=== PATIENT | female | born 1995 | race Caucasian/White ===

== ENCOUNTER → 2017-07-20 | Outpatient (CLI) | payer OTHER ==
[2017-07-20 08:57] LABS: COLLECTION METHOD CLEAN CATCH
[2017-07-20 09:08] LABS: HEMATOCRIT 40.9 % (37.0-47.0); HEMOGLOBIN 13.9 g/dl (12.5-16.0); MEAN CELL VOLUME 89 fl (80.0-100.0); MEAN CORPUSCULAR HEMOGLOBIN 30 pg (27.0-31.0); MEAN CORPUSCULAR HGB CONC 34 g/dl (33.0-37.0); MEAN PLATELET VOLUME 11.8 fl (7.4-10.4); PLATELET COUNT 184 K/mm3 (130-400); REDCELL DISTRIBUTION WIDTH-CV 11.9 % (11.5-14.5)
[2017-07-20 09:13] LABS: MUCOUS Present /lpf; PH 6 (5-8); SQUAMOUS EPITHELIAL 0-2 /hpf; URINE APPEARANCE Clear; URINE BACTERIA Rare /hpf; URINE BILIRUBIN Negative (NEGATIVE); URINE BLOOD 2+ (NEGATIVE); URINE COLOR Yellow; URINE GLUCOSE Negative (NEGATIVE); URINE KETONE Negative (NEGATIVE); URINE LEUKOCYTE ESTERASE Negative (NEGATIVE); URINE NITRATE Negative (NEGATIVE); URINE PROTEIN(semi-quant) Negative (NEGATIVE); URINE RBC 0-2 /hpf; URINE UROBILINOGEN Negative (NEGATIVE); URINE WBC 0-2 /hpf
[2017-07-20 09:20] LABS: ALBUMIN 4.5 gm/dL (3.5-5.0); BILIRUBIN,TOTAL 0.5 mg/dL (0.0-1.0); CALCIUM 9.5 mg/dL (8.4-10.2); CHOLESTEROL RISK RATIO 4.4; CREATININE, serum 1.19 mg/dL (0.52-1.25); POTASSIUM 4.3 mmol/L (3.4-5.0); TOTAL PROTEIN 7.5 gm/dL (6.4-8.2)
== END ==
LOC: COL.LAB 08:09
DX: I10 Essential (primary) hypertension (principal)

== ENCOUNTER → 2017-07-28 | Outpatient (CLI) | payer SELFPAY | LOC: COL.RAD 14:29 | DX: R93.421 Abnormal radiologic findings on diagnostic imaging of right kidney (principal); R93.422 Abnormal radiologic findings on diagnostic imaging of left kidney; Q64.8 Other specified congenital malformations of urinary system; R82.3 Hemoglobinuria; N39.0 Urinary tract infection, site not specified; Z96.0 Presence of urogenital implants ==

== ENCOUNTER → 2017-08-11 | Outpatient (CLI) | payer OTHER | LOC: COL.RAD 08-08 11:00 | DX: N28.89 Other specified disorders of kidney and ureter (principal); Q63.0 Accessory kidney; K76.89 Other specified diseases of liver; G31.9 Degenerative disease of nervous system, unspecified | CPT/HCPCS: Q9967 ==

== ENCOUNTER → 2017-08-18 | Outpatient (CLI) | payer SELFPAY ==
[2017-08-18 15:35] LABS: ANION GAP 14 mmol/L (7-16); BLOOD UREA NITROGEN 17 mg/dL (7-17); CALCIUM 9.2 mg/dL (8.4-10.2); CARBON DIOXIDE 23 mmol/L (22-30); CHLORIDE 103 mmol/L (98-107); CREATININE, serum 1.33 mg/dL (0.52-1.25); GLUCOSE 92 mg/dL (74-106); POTASSIUM 4.1 mmol/L (3.4-5.0); SODIUM 140 mmol/L (137-145)
[2017-08-19 15:05] LABS: URINE CREATININE CLEARANCE 73.6 mL/min (88-128); URINE TOTAL VOLUME 1425 mL
== END ==
LOC: COL.LAB 15:03
DX: N39.0 Urinary tract infection, site not specified (principal); G31.9 Degenerative disease of nervous system, unspecified; R93.41 Abnormal radiologic findings on diagnostic imaging of renal pelvis, ureter, or bladder

== ENCOUNTER → 2017-10-03 | Outpatient (CLI) | payer OTHER ==
[2017-10-03 14:13] LABS: CREATININE, serum 1.18 mg/dL (0.52-1.25)
== END ==
LOC: ZCOL.LAB 13:53
PROVIDERS: Internal Medicine
DX: Z01.89 Encounter for other specified special examinations (principal)

== ENCOUNTER → 2017-12-12 | Outpatient (CLI) | payer OTHER ==
[2017-12-12 11:22] LABS: CREATININE, serum 1.18 mg/dL (0.52-1.25)
== END ==
LOC: ZLAB.AMS 09:20
PROVIDERS: Internal Medicine
DX: I10 Essential (primary) hypertension (principal)

== ENCOUNTER → 2018-02-27 | Outpatient (CLI) | payer OTHER ==
[2018-02-27 13:42] LABS: ALBUMIN 4.4 gm/dL (3.5-5.0); CALCIUM 9.9 mg/dL (8.4-10.2); CREATININE, serum 1.18 mg/dL (0.52-1.25); PHOSPHOROUS 3.3 mg/dL (2.5-4.5); POTASSIUM 4.2 mmol/L (3.4-5.0)
[2018-02-27 14:12] LABS: TSH w REFLEX 0.387 uIU/mL (0.465-4.680)
== END ==
LOC: ZCOL.LAB 13:06
PROVIDERS: Internal Medicine
DX: N18.3 Chronic kidney disease, stage 3 (moderate) (principal)

== ENCOUNTER → 2018-03-06 | Outpatient (CLI) | payer OTHER ==
[2018-03-06 13:51] LABS: BASO # 0.1 (0.0-0.2); EOS # 0.2 (0.0-0.7); EOS % 2.4 % (0-4.0); GRAN # 4.8 (1.4-6.5); GRAN % 65.7 % (42.2-75.2); HEMATOCRIT 39.1 % (37.0-47.0); HEMOGLOBIN 13.4 g/dl (12.5-16.0); LYMPH # 1.8 (1.2-3.4); LYMPH % 25.3 % (20.0-51.0); MEAN CELL VOLUME 88 fl (80.0-100.0); MEAN CORPUSCULAR HEMOGLOBIN 30 pg (27.0-31.0); MEAN CORPUSCULAR HGB CONC 34 g/dl (33.0-37.0); MONO # 0.4 (0.1-0.6); MONO % 5.5 % (1.7-9.3); PLATELET COUNT 233 K/mm3 (130-400); RED BLOOD COUNT 4.47 M/mm3 (4.10-5.30); REDCELL DISTRIBUTION WIDTH-CV 11.8 % (11.5-14.5)
[2018-03-06 14:00] LABS: ALBUMIN 4.4 gm/dL (3.5-5.0); CALCIUM 9.8 mg/dL (8.4-10.2); CREATININE, serum 1.03 mg/dL (0.52-1.25); PHOSPHOROUS 3.5 mg/dL (2.5-4.5); POTASSIUM 4.9 mmol/L (3.4-5.0)
== END ==
LOC: ZCOL.LAB 13:17
PROVIDERS: Nurse Practitioner Family
DX: I10 Essential (primary) hypertension (principal)

== ENCOUNTER → 2018-08-20 | Outpatient (CLI) | payer OTHER ==
[2018-08-20 11:38] LABS: COLLECTION METHOD CLEAN CATCH
[2018-08-20 11:49] LABS: MUCOUS Present /lpf; PH 6 (5-8); SQUAMOUS EPITHELIAL 0-2 /hpf; URINE APPEARANCE Clear; URINE BACTERIA None Seen /hpf; URINE BILIRUBIN Negative (NEGATIVE); URINE BLOOD 1+ (NEGATIVE); URINE COLOR Yellow; URINE GLUCOSE Negative (NEGATIVE); URINE KETONE Negative (NEGATIVE); URINE LEUKOCYTE ESTERASE Negative (NEGATIVE); URINE NITRATE Negative (NEGATIVE); URINE PROTEIN(semi-quant) Negative (NEGATIVE); URINE RBC 0-2 /hpf; URINE UROBILINOGEN Negative (NEGATIVE)
[2018-08-20 11:49] LABS: HEMATOCRIT 42.2 % (37.0-47.0); HEMOGLOBIN 14.6 g/dl (12.5-16.0); MEAN CELL VOLUME 89 fl (80.0-100.0); MEAN CORPUSCULAR HEMOGLOBIN 31 pg (27.0-31.0); MEAN CORPUSCULAR HGB CONC 35 g/dl (33.0-37.0); MEAN PLATELET VOLUME 11.5 fl (7.4-10.4); PLATELET COUNT 195 K/mm3 (130-400); RED BLOOD COUNT 4.74 M/mm3 (4.10-5.30); REDCELL DISTRIBUTION WIDTH-CV 11.5 % (11.5-14.5)
[2018-08-20 11:55] LABS: CALCIUM 9.7 mg/dL (8.4-10.2); CREATININE, serum 1.22 (0.52-1.25); POTASSIUM 4.4 mmol/L (3.4-5.0)
[2018-08-20 12:04] LABS: URINE PROTEIN:CREAT RATIO 0.12 (0.00-0.14)
== END ==
LOC: COL.LAB 11:07
PROVIDERS: Family Medicine
DX: Q62.5 Duplication of ureter (principal); N18.9 Chronic kidney disease, unspecified

== ENCOUNTER 2018-08-31 06:27 | Day surgery (SDC) | payer OTHER ==
[~2018-08-31] VITALS: Ht 165.1 cm; Wt 64.5 kg
[2018-08-31 07:29] VITALS: BP 120/73; PULSE 90; TEMP 99.1
[2018-08-31] MEDS ORDERED: TRI-SPRINTEC 281 TAB PO (07:41)
[2018-08-31] MEDS ORDERED: COZAAR 50MG50 MG/TAB PO (07:42)
[2018-08-31 09:40] VITALS: BP 112/63; PULSE 65
--- NOTE | 2018-08-31 09:40 | NUR ---
Patient returns to room 7 per cart from PACU and is awake and alert. Temp 98.6 and room air sats 98%. IV fluids infusing. Siderails up x2 and call light in reach. Davis catheter in place to dependent drainage with pink tinged urine. Allowed to rest. Family in room. Radiology notified that the patient is here.
[2018-08-31 09:55] VITALS: BP 116/70; PULSE 70
--- NOTE | 2018-08-31 09:55 | NUR ---
Urine remains pink. Family in room. States that she is having burning in the urethral area. Will continue to monitor.
[2018-08-31 10:12] VITALS: BP 112/63; PULSE 63; TEMP 98.6
--- NOTE | 2018-08-31 10:20 | NUR ---
Patient taken to radiology per cart.
--- NOTE | 2018-08-31 11:20 | NUR ---
Paitent returns from radiology per wheelchair and IV to INT. Denies pain or nausea. Patient is dressing self and gait steady.
--- NOTE | 2018-08-31 11:29 | NUR ---
Given dismissal instructions and voices undestanding of these. Provided office number for questions and concerns. Provided with follow up appointment card reminder. Patient taken to the front door per wheelchair and assisted into private vehicle driven by spouse and dismissed to home with instructions in hand.
== END 2018-08-31 11:29 | disposition home or self-care (01) ==
LOC: SDCO 06:27
DX: Q62.5 Duplication of ureter (principal); R10.9 Unspecified abdominal pain; I12.9 Hypertensive chronic kidney disease with stage 1 through stage 4 chronic kidney disease, or unspecified chronic kidney disease; N18.2 Chronic kidney disease, stage 2 (mild); Z79.899 Other long term (current) drug therapy; F17.210 Nicotine dependence, cigarettes, uncomplicated; Z87.440 Personal history of urinary (tract) infections; F41.0 Panic disorder [episodic paroxysmal anxiety]; F41.9 Anxiety disorder, unspecified; F32.9 Major depressive disorder, single episode, unspecified
CPT/HCPCS: J0690; J1100; J1885; J2405; J2704; J3010; J7120; Q9967

== ENCOUNTER 2018-10-05 05:24 | Day surgery (SDC) | payer OTHER ==
[~2018-10-05] VITALS: Ht 165.1 cm; Wt 63.0 kg
[~2018-10-05 05:24] MED LIST: COZAAR 50MG50 MG/TAB PO; TRI-SPRINTEC 281 TAB PO
[2018-10-05 06:12] VITALS: BP 134/80; PULSE 66; TEMP 98.8
[2018-10-05 08:45] VITALS: BP 121/65; PULSE 67; TEMP 98.6
--- NOTE | 2018-10-05 08:45 | NUR ---
Patient arrives back to [facility] drowsy. Patient denies nausea, reports pain 2/10 in urethra area. Patient monitor applied, vitals stable. Patient family brought to bedside. Patient given water and muffin. Patient tolerating ice chips well.
[2018-10-05 09:00] VITALS: BP 112/66; PULSE 66
--- NOTE | 2018-10-05 09:00 | NUR ---
Patient tolerating muffin without any nausea. Patient denies wanting any pain medication. Vitals stable. Family at bedside.
[2018-10-05 09:15] VITALS: BP 118/76; PULSE 63
--- NOTE | 2018-10-05 09:20 | NUR ---
Patient resting comfortably, complains of pain starting to increase. PRN Bryan given. Vitals stable.
[2018-10-05] MEDS ORDERED: NORCO 325 MG-51 TAB PO (09:27)
[2018-10-05 09:30] VITALS: BP 112/65; PULSE 54
--- NOTE | 2018-10-05 09:40 | NUR ---
Patient up to restroom at this time with stand by assist. Patient ambulates without any difficulties. Patient is able to urinate without any complications.
--- NOTE | 2018-10-05 10:15 | NUR ---
Dismissal instructions gone over with patient and patient's spouse. Both verbalize understanding and all questions answered.
== END 2018-10-05 10:20 | disposition home or self-care (01) ==
LOC: SDCO 05:24
DX: N13.722 Vesicoureteral-reflux with reflux nephropathy without hydroureter, bilateral (principal); Q62.5 Duplication of ureter; Z87.440 Personal history of urinary (tract) infections; F41.9 Anxiety disorder, unspecified; F32.9 Major depressive disorder, single episode, unspecified; I12.9 Hypertensive chronic kidney disease with stage 1 through stage 4 chronic kidney disease, or unspecified chronic kidney disease; N18.2 Chronic kidney disease, stage 2 (mild); Z88.2 Allergy status to sulfonamides; F17.210 Nicotine dependence, cigarettes, uncomplicated; Z91.048 Other nonmedicinal substance allergy status
CPT/HCPCS: C1769; J0690; J1100; J1885; J2270; J2405; J2704; J3010; J7120; L8604; Q9967

== ENCOUNTER → 2018-10-30 | Outpatient (CLI) | payer OTHER ==
[~2018-10-30] MED LIST changes: +NORCO 325 MG-51 TAB PO
[2018-10-30 09:24] LABS: CALCIUM 9.7 mg/dL (8.4-10.2); CREATININE, serum 1.31 (0.52-1.25); MAGNESIUM 1.7 mg/dL (1.6-2.3); POTASSIUM 4.3 mmol/L (3.4-5.0)
== END ==
LOC: COL.LAB 08:50
PROVIDERS: Internal Medicine
DX: I12.9 Hypertensive chronic kidney disease with stage 1 through stage 4 chronic kidney disease, or unspecified chronic kidney disease (principal); N18.9 Chronic kidney disease, unspecified; Q62.5 Duplication of ureter

== ENCOUNTER → 2019-02-20 | Outpatient (CLI) | payer OTHER ==
[2019-02-20 11:52] LABS: CALCIUM 9.6 mg/dL (8.4-10.2); CREATININE, serum 1.22 (0.52-1.25)
[2019-02-20 23:12] LABS: URINE MICROALBUMIN 3.2 mg/dL (0.0-1.7)
== END ==
LOC: COL.LAB 11:07
PROVIDERS: Internal Medicine
DX: I12.9 Hypertensive chronic kidney disease with stage 1 through stage 4 chronic kidney disease, or unspecified chronic kidney disease (principal); N18.9 Chronic kidney disease, unspecified; Q62.5 Duplication of ureter

== ENCOUNTER → 2019-03-13 | Outpatient (CLI) | payer OTHER | LOC: COL.LAB 14:24 | PROVIDERS: Family Medicine | DX: N92.6 Irregular menstruation, unspecified (principal) ==

== ENCOUNTER → 2019-03-20 | Outpatient (CLI) | payer OTHER | LOC: COL.CARD 08:00 | DX: R00.2 Palpitations (principal) ==

== ENCOUNTER → 2019-04-08 | Outpatient (CLI) | payer OTHER ==
[2019-04-08 21:08] LABS: RHEUMATOID FACTOR-SCREEN <15 IU/mL (0-29)
== END ==
LOC: COL.LAB 13:20
PROVIDERS: Family Medicine
DX: R53.83 Other fatigue (principal); R21 Rash and other nonspecific skin eruption

== ENCOUNTER 2020-10-01 10:10 | Inpatient (IN) | payer BC ==
[~2020-10-01] VITALS: Ht 165.1 cm; Wt 73.6 kg
[2020-10-02] VITALS (61 sets, daily range): BP systolic 101–158; BP diastolic 55–89; PULSE 61–116; TEMP 97.5–100.4
[2020-10-02] MEDS ORDERED: PROFERRIN ES12 MG (06:37)
[2020-10-02] MEDS ORDERED: PRENATAL (06:37)
[2020-10-02 07:01] LABS: BASO # 0.1 (0.0-0.2); BASO % 0.4 % (0.0-2.0); EOS # 0.2 (0.0-0.7); EOS % 1.3 % (0-4.0); GRAN # 7.9 (1.4-6.5); GRAN % 69.3 % (42.2-75.2); LYMPH # 2.5 (1.2-3.4); LYMPH % 22.2 % (20.0-51.0); MEAN CELL VOLUME 90 fl (80.0-100.0); MEAN CORPUSCULAR HEMOGLOBIN 30 pg (27.0-31.0); MEAN CORPUSCULAR HGB CONC 33 g/dl (33.0-37.0); MEAN PLATELET VOLUME 11.3 fl (7.4-10.4); MONO # 0.7 (0.1-0.6); MONO % 6.1 % (1.7-9.3); PLATELET COUNT 199 K/mm3 (130-400); RED BLOOD COUNT 3.72 M/mm3 (4.10-5.30); REDCELL DISTRIBUTION WIDTH-CV 13.7 % (11.5-14.5)
[2020-10-02 07:02] LABS: HEMATOCRIT 33.3 % (37.0-47.0)
--- NOTE | 2020-10-02 09:08 | NUR ---
Pt sitting upright for epidural placement. Difficulty tracing FHR due to maternal position. RN at bedside adjuting monitors. FHR audible.
[2020-10-02 11:15] LABS: ALBUMIN 3.5 gm/dL (3.5-5.0); BILIRUBIN,TOTAL 0.2 mg/dL (0.0-1.0); CALCIUM 8.9 mg/dL (8.4-10.2); CREATININE, serum 1.13 (0.52-1.25); TOTAL PROTEIN 6.8 gm/dL (6.4-8.2)
--- NOTE | 2020-10-02 11:42 | NUR ---
AT BEDSIDE, ULTRASOUND PERFORMED, VERTEX POSITION CONFIRMED, AROM W/ CLEAR FLUID, SVE /-3, TOLERATED PROCEDURE WELL, VITAL SIGNS STABLE, LIBRADO CARE PERFORMED BY THIS RN
--- NOTE | 2020-10-02 18:20 | NUR ---
Plan of care reviewed with pt and significant other. Questions invited and answered.
--- NOTE | 2020-10-02 20:20 | NUR ---
temp 99.7. PT covered with 2 fleece blankets, blankets removed, LR to bolus rate.
--- NOTE | 2020-10-02 21:00 | NUR ---
FHT's 170's with minimal variability, recurrent late decels. Temp 100.4. LR continues at bolus. SVE as noted.
--- NOTE | 2020-10-02 21:25 | NUR ---
Dr Castillo into room, MARVIN complete. Discusses/reviews plan of care Febrile, tachycardia, importance of getting baby delivered before more distress, possible use of forceps or vacuum, possible C/S if distress increases before able to deliver vaginally. Questions invited and answered. Pushing instructions given. Davis catheter dc'd.
--- NOTE | 2020-10-02 21:58 | NUR ---
Dr Castillo applies vacuum after reviewing with pt. 2202 Vacuum assisted vaginal delivery by Dr Castillo. Pt et significant other loving and excited about
--- NOTE | 2020-10-02 22:12 | NUR ---
Placenta delivers spont and intact with 3 vessell cord. Pitocin gtt to bolus rate. Heavy free flow. Bimaunual exams by Dr Castillo yields several medium sized clots. Continued fundal massage et Pitocin bolus firms fundus, decreases flow. Perineal reapaie completed, pericar performed, ice pack applied, bed together.
[2020-10-03] VITALS (14 sets, daily range): BP systolic 101–154; BP diastolic 56–86; PULSE 61–115; TEMP 97.9–99.2
--- NOTE | 2020-10-03 01:30 | NUR ---
mod to heavy lochia, fundus slightly boggy, massages quickly to firm, no clots expressed.
--- NOTE | 2020-10-03 02:30 | NUR ---
0230 500cc LR with 30 units pitocin started @ bolus rate 0245lochia decreased, no clots expressed with massage. Pt alert and oriented.
--- NOTE | 2020-10-03 03:05 | NUR ---
lochia heavy, orange sized clot expressed with massage. 0315 Straight cathed with return of 500cc concentrated. urine.
--- NOTE | 2020-10-03 03:40 | NUR ---
Hemabate to L ant thigh after explanation to pt. Tolerates well
--- NOTE | 2020-10-03 04:30 | NUR ---
Percocet 1 po per pt request "for really bad cramping"
--- NOTE | 2020-10-03 05:30 | NUR ---
Percocet 1 po for continued cramping
--- NOTE | 2020-10-03 06:45 | NUR ---
Report from Sinan Floyd RN and care of patient assumed at this time. RN at bedside to assess patient. See vital signs. Moderate amount of diarrhea noted, complete pericare given. Patient attempts bedpan, unable to void at this time. Straight catheterization completed per protocol for 850 ml clear urine. Vaginal bleeding WNL at this time. 0715- Dr. Castillo at bedside, updated on patient assessment. Patient assisted into wheelchair and transferred to room. Updated on plan of care and safety.
[2020-10-03 07:42] LABS: MEAN CELL VOLUME 91 fl (80.0-100.0); MEAN CORPUSCULAR HGB CONC 34 g/dl (33.0-37.0); MEAN PLATELET VOLUME 11.6 fl (7.4-10.4); PLATELET COUNT 239 K/mm3 (130-400); REDCELL DISTRIBUTION WIDTH-CV 14.1 % (11.5-14.5)
[2020-10-03 07:50] LABS: ALBUMIN 2.8 gm/dL (3.5-5.0); BILIRUBIN,TOTAL 0.4 mg/dL (0.0-1.0); CALCIUM 8.6 mg/dL (8.4-10.2); CREATININE, serum 1.22 (0.52-1.25); POTASSIUM 4.3 mmol/L (3.4-5.0); TOTAL PROTEIN 5.7 gm/dL (6.4-8.2)
[2020-10-03 08:07] LABS: HEMATOCRIT 28.1 % (37.0-47.0); HEMOGLOBIN 9.5 g/dl (12.5-16.0); MEAN CORPUSCULAR HEMOGLOBIN 31 pg (27.0-31.0)
[2020-10-03 09:29] LABS: LYMPHOCYTE 10 % (20.0-51.0); NEUTROPHILS 84 % (42.0-75.2); PLATELET ESTIMATE NORMAL (NORMAL)
[2020-10-04 07:08] LABS: BASO # 0.1 (0.0-0.2); BASO % 0.4 % (0.0-2.0); EOS # 0.1 (0.0-0.7); EOS % 0.8 % (0-4.0); GRAN # 12.3 (1.4-6.5); GRAN % 74.8 % (42.2-75.2); LYMPH % 18.1 % (20.0-51.0); MEAN CELL VOLUME 92 fl (80.0-100.0); MEAN CORPUSCULAR HGB CONC 34 g/dl (33.0-37.0); MEAN PLATELET VOLUME 11.1 fl (7.4-10.4); MONO # 0.9 (0.1-0.6); MONO % 5.2 % (1.7-9.3); PLATELET COUNT 185 K/mm3 (130-400); RED BLOOD COUNT 2.35 M/mm3 (4.10-5.30); REDCELL DISTRIBUTION WIDTH-CV 14.6 % (11.5-14.5)
[2020-10-04 07:19] LABS: HEMATOCRIT 21.5 % (37.0-47.0); HEMOGLOBIN 7.2 g/dl (12.5-16.0); MEAN CORPUSCULAR HEMOGLOBIN 31 pg (27.0-31.0)
[2020-10-04 08:28] VITALS: BP 131/64; PULSE 87; TEMP 98.1
--- NOTE | 2020-10-04 10:23 | NUR ---
environmental services supervisor at bedside.
--- NOTE | 2020-10-04 11:54 | NUR ---
SW met with patient about care. SW staffed [facility] Nurse, who has concerns about MH care with patient's HX of depression and the use of Wellburtrin. Patient reported to the nurse that she can not afford the therapy with [employer]. Patient's FOB is [facility] . Patient reports that she and FOB reside together and do not have any concerns about taking baby home. Client was offered services for mental health and primary care. Left patient resource guide. NF
--- NOTE | 2020-10-04 13:39 | NUR ---
Patient states she feels great after ambulating and requesting to go home. prior orders per Dr. Fox to dc is patient is ready.
--- NOTE | 2020-10-04 14:02 | NUR ---
Patient given discharge instructions. States she will schedule appointments with PCP, counselor, and designer/writer. Denies questions.
== END 2020-10-04 14:05 | disposition home or self-care (01) | DRG 805 ==
LOC: OB 10:10 → LDR 10-02 06:12 → OB 10-03 07:15
PROVIDERS: Obstetrics & Gynecology; ADMIT Obstetrics & Gynecology
PROC: 10D07Z6 Extraction of Products of Conception, Vacuum, Via Natural or Artificial Opening (ICD-10-PCS; principal; 2020-10-02)
PROC: 0KQM0ZZ Repair Perineum Muscle, Open Approach (ICD-10-PCS; 2020-10-02)
PROC: 10907ZC Drainage of Amniotic Fluid, Therapeutic from Products of Conception, Via Natural or Artificial Opening (ICD-10-PCS; 2020-10-02)
DX: O10.92 Unspecified pre-existing hypertension complicating childbirth (principal); O41.1230 Chorioamnionitis, third trimester, not applicable or unspecified; Z37.0 Single live birth; O99.344 Other mental disorders complicating childbirth; O99.892 Other specified diseases and conditions complicating childbirth; O70.1 Second degree perineal laceration during delivery; O66.0 Obstructed labor due to shoulder dystocia; O76 Abnormality in fetal heart rate and rhythm complicating labor and delivery; F41.9 Anxiety disorder, unspecified; F31.9 Bipolar disorder, unspecified; N18.9 Chronic kidney disease, unspecified; Z3A.39 39 weeks gestation of pregnancy
CPT/HCPCS: J1200; J1580; J2590; J2795; J7120

== ENCOUNTER 2020-10-06 11:51 | Outpatient (RCR) | payer BC ==
[2020-10-06] VITALS (9 sets, daily range): BP systolic 114–146; BP diastolic 58–95; PULSE 67–100; TEMP 98.1–98.4
[~2020-10-06] VITALS: Ht 165.1 cm; Wt 69.8 kg
[~2020-10-06 11:51] MED LIST changes: +PRENATAL; +PROFERRIN ES12 MG
--- NOTE | 2020-10-06 17:51 | NUR ---
Blood complete. VSS.
--- NOTE | 2020-10-06 18:08 | NUR ---
INT discontinued intact.
== END 2020-10-06 18:00 | disposition home or self-care (01) ==
LOC: EUO 11:51
DX: O99.019 Anemia complicating pregnancy, unspecified trimester (principal); Z3A.00 Weeks of gestation of pregnancy not specified
CPT/HCPCS: J7050; P9016

== ENCOUNTER → 2021-07-01 | Outpatient (CLI) | payer SELFPAY | LOC: ZCOL.LAB 15:25 | DX: R50.9 Fever, unspecified (principal); Z20.822 Contact with and (suspected) exposure to COVID-19 ==

== ENCOUNTER → 2022-08-03 | Outpatient (CLI) | payer MEDICAID ==
[2022-08-03 12:43] LABS: CALCIUM 9.5 mg/dL (8.4-10.2); CREATININE, serum 1.18 mg/dL (0.57-1.11); POTASSIUM 4.4 mmol/L (3.5-4.5)
== END ==
LOC: COL.LAB 11:29
PROVIDERS: Internal Medicine Nephrology
DX: N18.2 Chronic kidney disease, stage 2 (mild) (principal)

== ENCOUNTER 2023-04-30 07:21 | Emergency (ER) | payer MEDICAID ==
[~2023-04-30] VITALS: Ht 165.1 cm; Wt 59.1 kg
[2023-04-30 07:26] VITALS: TEMP 98.1
[2023-04-30 07:43] LABS: COLLECTION METHOD CLEAN CATCH
[2023-04-30 07:46] LABS: EOS # 0.1 K/mm3 (0.0-0.7); EOS % 1.1 % (0.0-4.0); GRAN # 6.2 K/mm3 (1.4-6.5); GRAN % 78.9 % (42.2-75.2); HEMATOCRIT 40.9 % (37.0-47.0); HEMOGLOBIN 14.3 g/dl (12.5-16.0); LYMPH # 1.1 K/mm3 (1.2-3.4); LYMPH % 14.3 % (20.0-51.0); MEAN CELL VOLUME 88 fl (80.0-100.0); MEAN CORPUSCULAR HEMOGLOBIN 31 pg (27-31); MEAN CORPUSCULAR HGB CONC 35 g/dl (33.0-37.0); MEAN PLATELET VOLUME 10.5 fl (7.4-10.4); MONO # 0.4 K/mm3 (0.1-0.6); MONO % 5.4 % (1.7-9.3); PLATELET COUNT 258 K/mm3 (130-400); RED BLOOD COUNT 4.63 M/mm3 (4.10-5.30)
[2023-04-30 07:51] LABS: PH 5.5 (5.0-8.5); URINE APPEARANCE Clear (CLEAR/HAZY); URINE BLOOD 2+ (NEGATIVE); URINE COLOR Yellow (YELLOW); URINE GLUCOSE Negative (NEGATIVE); URINE KETONE Negative (NEGATIVE); URINE NITRATE Negative (NEGATIVE); URINE PROTEIN(semi-quant) Negative (NEGATIVE); URINE UROBILINOGEN 0.2 E.U/dL (0.2-1.0)
[2023-04-30 08:00] LABS: URINE BACTERIA Occasional /hpf (NONE SEEN); URINE RBC 0-2 /hpf (0-2)
[2023-04-30 08:08] LABS: ALBUMIN 4.4 gm/dL (3.5-5.0); BILIRUBIN,TOTAL 0.8 mg/dL (0.2-1.2); CALCIUM 9.5 mg/dL (8.4-10.2); CREATININE, serum 1.35 mg/dL (0.57-1.11); POTASSIUM 3.8 mmol/L (3.5-4.5); TOTAL PROTEIN 7.9 gm/dL (6.2-8.1)
[2023-04-30] MEDS ORDERED: ZOFRAN ODT4 MG PO (08:51)
[2023-04-30 09:03] VITALS: BP 124/82; PULSE 76
== END 2023-04-30 09:04 | disposition home or self-care (01) ==
LOC: COL.ER 07:21
PROVIDERS: Emergency Medicine
DX: R10.13 Epigastric pain (principal); R11.2 Nausea with vomiting, unspecified
CPT/HCPCS: J2405; J7120

== ENCOUNTER 2023-06-17 03:08 | Emergency (ER) | payer MEDICAID ==
[~2023-06-17] VITALS: Ht 165.1 cm; Wt 57.7 kg
[~2023-06-17 03:08] MED LIST changes: +ZOFRAN ODT4 MG PO
[2023-06-17 04:17] LABS: COLLECTION METHOD CLEAN CATCH
[2023-06-17 04:31] LABS: BASO % 0.1 % (0.0-2.0); GRAN # 6.3 K/mm3 (1.4-6.5); GRAN % 81.3 % (42.2-75.2); HEMOGLOBIN 13.8 g/dl (12.5-16.0); LYMPH % 12.5 % (20.0-51.0); MEAN CELL VOLUME 87 fl (80.0-100.0); MEAN CORPUSCULAR HEMOGLOBIN 31 pg (27-31); MEAN CORPUSCULAR HGB CONC 35 g/dl (33.0-37.0); MEAN PLATELET VOLUME 10.5 fl (7.4-10.4); MONO # 0.5 K/mm3 (0.1-0.6); PLATELET COUNT 190 K/mm3 (130-400); RED BLOOD COUNT 4.51 M/mm3 (4.10-5.30); REDCELL DISTRIBUTION WIDTH-CV 11.9 % (11.5-14.5)
[2023-06-17 04:49] LABS: PH 5.5 (5.0-8.5); URINE APPEARANCE Clear (CLEAR/HAZY); URINE BLOOD TRACE-INTACT (NEGATIVE); URINE COLOR Yellow (YELLOW); URINE GLUCOSE Negative (NEGATIVE); URINE KETONE TRACE (NEGATIVE); URINE NITRATE Negative (NEGATIVE); URINE PROTEIN(semi-quant) 2+ (NEGATIVE); URINE UROBILINOGEN 0.2 E.U/dL (0.2-1.0)
[2023-06-17 04:52] LABS: MUCOUS Present (NOT PRESENT); URINE RBC 0-2 /hpf (0-2); URINE WBC None Seen /hpf (0-2)
[2023-06-17 05:13] LABS: ALBUMIN 3.8 gm/dL (3.5-5.0); BILIRUBIN,TOTAL 1.1 mg/dL (0.2-1.2); C-REACTIVE PROTEIN 4.38 mg/dL (0.00-0.50); CALCIUM 8.5 mg/dL (8.4-10.2); CREATININE, serum 1.29 mg/dL (0.57-1.11); POTASSIUM 3.8 mmol/L (3.5-4.5); TOTAL PROTEIN 6.9 gm/dL (6.2-8.1)
[2023-06-17] MEDS ORDERED: PREDNISONE50 MG PO (06:57)
[2023-06-17 07:12] VITALS: BP 121/87; PULSE 88; TEMP 98.3
== END 2023-06-17 07:13 | disposition home or self-care (01) ==
LOC: COL.ER 03:08
PROVIDERS: Emergency Medicine
DX: L50.9 Urticaria, unspecified (principal); R11.2 Nausea with vomiting, unspecified; R19.7 Diarrhea, unspecified; R10.13 Epigastric pain; R10.31 Right lower quadrant pain; R79.82 Elevated C-reactive protein (CRP); R79.89 Other specified abnormal findings of blood chemistry
CPT/HCPCS: J1200; J7030; J7512; Q9967

== ENCOUNTER 2023-07-17 20:52 | Emergency (ER) | payer SELFPAY ==
[~2023-07-17] VITALS: Ht 165.1 cm; Wt 57.7 kg
[~2023-07-17 20:52] MED LIST changes: +PREDNISONE50 MG PO
[2023-07-17 21:03] VITALS: TEMP 98.3
[2023-07-17] MEDS ORDERED: Ondansetron 4 MG/2 ML VIAL IV ONE (21:30)
[2023-07-17] MEDS ORDERED: NS 1,000 ML IV ONE (21:30)
[2023-07-17] MEDS ORDERED: Ketorolac 15 MG/ML VIAL IV ONE (21:30)
[2023-07-17] MEDS ORDERED: dexAMETHasone 10 MG/ML VIAL IV ONE (21:30)
[2023-07-17 21:47] LABS: COLLECTION METHOD CLEAN CATCH
[2023-07-17 21:56] LABS: PH 6.5 (5.0-8.5); URINE APPEARANCE CLEAR (CLEAR/HAZY); URINE BLOOD NEGATIVE (NEGATIVE); URINE COLOR YELLOW (YELLOW); URINE GLUCOSE NEGATIVE (NEGATIVE); URINE KETONE NEGATIVE (NEGATIVE); URINE NITRATE NEGATIVE (NEGATIVE); URINE PROTEIN(semi-quant) TRACE (NEGATIVE); URINE UROBILINOGEN 0.2 E.U/dL (0.2-1.0)
[2023-07-17 23:34] VITALS: BP 142/82; PULSE 53
[2023-07-18] MEDS ORDERED: PEPCID 20MG TAB20 MG PO (02:46)
[2023-07-18] MEDS ORDERED: MEDROL 4MG DOSPA4 MG PO (02:46)
== END 2023-07-17 23:40 | disposition home or self-care (01) ==
LOC: COL.ER 20:52
PROVIDERS: Nurse Practitioner
DX: L50.9 Urticaria, unspecified (principal); G43.909 Migraine, unspecified, not intractable, without status migrainosus
CPT/HCPCS: J1100; J1885; J2405; J7030

== ENCOUNTER 2023-07-18 00:49 | Emergency (ER) | payer SELFPAY ==
[~2023-07-18] VITALS: Ht 165.1 cm; Wt 57.7 kg
[2023-07-18 00:54] VITALS: TEMP 98.5
[2023-07-18] MEDS ORDERED: NS 500 ML IV ONE (01:15)
[2023-07-18] MEDS ORDERED: diphenhydrAMINE 50 MG/ML 1 ML VIAL IV ONE (01:15)
[2023-07-18] MEDS ORDERED: dexAMETHasone 10 MG/ML VIAL IV ONE (01:15)
[2023-07-18 01:26] LABS: BASO % 0.1 % (0.0-2.0); GRAN # 6.9 K/mm3 (1.4-6.5); GRAN % 87.7 % (42.2-75.2); HEMATOCRIT 39.4 % (37.0-47.0); HEMOGLOBIN 13.9 g/dl (12.5-16.0); LYMPH # 0.8 K/mm3 (1.2-3.4); LYMPH % 10.6 % (20.0-51.0); MEAN CELL VOLUME 88 fl (80.0-100.0); MEAN CORPUSCULAR HEMOGLOBIN 31 pg (27-31); MEAN CORPUSCULAR HGB CONC 35 g/dl (33.0-37.0); MONO # 0.1 K/mm3 (0.1-0.6); MONO % 1.3 % (1.7-9.3); PLATELET COUNT 214 K/mm3 (130-400); RED BLOOD COUNT 4.48 M/mm3 (4.10-5.30); REDCELL DISTRIBUTION WIDTH-CV 11.8 % (11.5-14.5)
[2023-07-18 01:42] LABS: POTASSIUM 4.5 mmol/L (3.5-4.5)
[2023-07-18 01:43] LABS: CALCIUM 9.5 mg/dL (8.4-10.2); CREATININE, serum 1.39 mg/dL (0.57-1.11)
[2023-07-18 02:39] VITALS: BP 122/79; PULSE 61
[2023-07-18] MEDS ORDERED: MEDROL 4MG DOSPA4 MG PO (02:46)
[2023-07-18] MEDS ORDERED: PEPCID 20MG TAB20 MG PO (02:46)
--- NOTE | 2023-07-18 13:48 | NUR ---
bridge worker was consulted for patient's health insurance as she does not currently have insurance and has been to the ER 4 times since 04/30/23. ANABEL contacted Shirley with financial counseling whom reports they do not have a FAA for this patient and reports she does not have Medicaid but may qualify for it as she has children. ANABEL contacted patient via telephone as patient discharged from ER earlier today. Patient reports she received an FAA and would fill it out and return it. Patient reports she had applied for Medicaid and her child received Medicaid but she was denied. ANABEL expressed if she was willing to speak with the financial counselor they can assist with the FAA and Medicaid bam. Patient is willing to contact the financial counselor, ANABEL provided the contact information. ANABEL discussed [email or web address] and patient has looked at this briefly but needs to look more into it. ANABEL discussed [facility] and patient used them years ago. Patient expressed she would be open to going there for primary care until she can get insurance established. ANABEL notified Shirley, financial counselor, that patient would be contacting her shortly.
== END 2023-07-18 02:54 | disposition home or self-care (01) ==
LOC: COL.ER 00:49
PROVIDERS: Internal Medicine
DX: T78.3XXA Angioneurotic edema, initial encounter (principal); N18.31 Chronic kidney disease, stage 3a
CPT/HCPCS: J1100; J1200; J7040